=== PATIENT | male | born 1990 | race Caucasian/White ===

== ENCOUNTER → 2016-05-21 | Outpatient (CLI) | payer MEDICAID | LOC: RAD 16:01 | PROVIDERS: ATTEND Nurse Practitioner Family | DX: R07.89 Other chest pain (principal) | CPT/HCPCS: 71020 ==

== ENCOUNTER → 2018-07-27 | Outpatient (CLI) | payer MEDICAID ==
--- NOTE | 2018-07-27 12:20 | RADIOLOGY REPORT (SQ) ---
EXAM DESCRIPTION: FINGERS RIGHT COMPLETED DATE/TIME: 07/27/2018 11:47 am REASON FOR STUDY: PAIN IN RIGHT FINGER(S) M79.644 PAIN IN RIGHT FINGER(S) Crush injury to the right 4th finger 1 month ago COMPARISON: None. NUMBER OF VIEWS: Three views. TECHNIQUE: AP, lateral, and oblique images acquired of the right fourth finger. LIMITATIONS: None. FINDINGS: MINERALIZATION: Normal. BONES: No acute fracture or dislocation. No worrisome bone lesions. SOFT TISSUES: Mild dorsal old right 4th finger soft tissue swelling. No foreign body. OTHER: No other significant finding. IMPRESSION: 4th finger soft tissue swelling without radiopaque foreign body or fracture COMMENT: SITE OF TRAUMA/COMPLAINT MARKED/STAMP COMPLETED: YES. TECHNICAL DOCUMENTATION: JOB ID: [id number] [employer]- All Rights Reserved Reading location - IP/workstation name: [email or web address]
== END ==
LOC: OD 11:28
PROVIDERS: ATTEND Nurse Practitioner Family
DX: M79.644 Pain in right finger(s) (principal); M79.89 Other specified soft tissue disorders

== ENCOUNTER 2019-10-13 18:24 | Emergency (ER) | payer MEDICAID ==
[2019-10-13] MEDS ORDERED: METHOCARBAMOL 500 MG TABLET PO ONE (19:27)
--- NOTE | 2019-10-13 19:30 | ER Document Report ---
HPI - HPI Patient complains to provider of: Shoulder pain Time Seen by Provider: 10/13/19 19:24 Onset: Yesterday Onset/Duration: Sudden, Persistent Quality of pain: Achy, Sharp Severity: Moderate Pain Level: 3 Context: 29-year-old male presented to ED for complaint of pain to the right shoulder. He states he was wearing flip-flops yesterday when he went outside and it was wet and then he came in and slipped on the tile floor claudicates himself with arm causing pain to his right shoulder. He states he is taking Aleve multiple times a day and he took some Flexeril he had from a long time ago and has not had any relief from the pain. He is alert oriented respirations regular and unlabored speaking in full sentences walks with even steady gait. Associated Symptoms: Other - Pain to the right shoulder Exacerbated by: Movement Relieved by: Denies Similar symptoms previously: Yes Recently seen / treated by doctor: No - ROS ROS below otherwise negative: Yes - CONSTITUTIONAL Constitutional: DENIES: Fever, Chills - EENT EENT: DENIES: Sore Throat, Ear Pain, Nasal Drainage-Clear, Nasal Drainage- Purulent, Congestion, Eye problems - NEURO Neurology: DENIES: Headache, Weakness, Vision blurred, Dizzinesss / Vertigo - CARDIOVASCULAR Cardiovascular: DENIES: Chest pain - RESPIRATORY Respiratory: DENIES: Trouble Breathing, Coughing - GASTROINTESTINAL Gastrointestinal: DENIES: Abdominal Pain, Nausea, Patient vomiting, Diarrhea, Constipation, Black / Bloody Stools - URINARY Urinary: DENIES: Dysuria, Urgency, Frequency - MUSCULOSKELETAL Musculoskeletal: REPORTS: Extremity pain. DENIES: Back Pain, Neck Pain, Swelling - DERM Skin Color: Normal Skin Problems: None Past Medical History - General Information source: Patient - Social History Smoking Status: Never Smoker Frequency of alcohol use: None Drug Abuse: None Occupation: Construction Lives with: Family Family History: Reviewed & Not Pertinent Patient has suicidal ideation: No Patient has homicidal ideation: No - Past Medical History Cardiac Medical History: Reports: None Pulmonary Medical History: Reports: None EENT Medical History: Reports: None Neurological Medical History: Reports: None Endocrine Medical History: Reports: None Renal/ Medical History: Reports: None Malignancy Medical History: Reports None GI Medical History: Reports: None Musculoskeletal Medical History: Reports None Skin Medical History: Reports None Psychiatric Medical History: Reports: None Traumatic Medical History: Reports: None Infectious Medical History: Reports: None Surgical Hx: Negative Past Surgical History: Reports: None - Immunizations Hx Diphtheria, Pertussis, Tetanus Vaccination: Yes Vertical Provider Document - CONSTITUTIONAL Agree With Documented VS: Yes Exam Limitations: No Limitations General Appearance: WD/WN, No Apparent Distress - INFECTION CONTROL TRAVEL OUTSIDE OF THE [place] IN LAST 30 DAYS: No - HEENT HEENT: Atraumatic, Normal ENT Exam, Normocephalic, PERRLA - NECK Neck: Normal Inspection, Supple, Thyroid Normal - RESPIRATORY Respiratory: Breath Sounds Normal, No Respiratory Distress, Chest Non-Tender - CARDIOVASCULAR Cardiovascular: Regular Rate, Regular Rhythm - MUSCULOSKELETAL/EXTREMETIES Musculoskeletal/Extremeties: MAEW, FROM - With pain, Tender, No Edema - NEURO Level of Consciousness: Awake, Alert, Appropriate Motor/Sensory: No Motor Deficit, No Sensory Deficit, No Pronator Drift - DERM Integumentary: Warm, Dry, No Rash Course - Re-evaluation Re-evalutation: 10/13/19 19:35 Patient has full range of motion to his left shoulder but he does have pain with range of motion. He fell yesterday caught himself with his arm. He has no bony tenderness. He has been educated on the use of muscle relaxers and shoulder exercises. He is also being given instructions on use of anti-inflammatory medications. He has been instructed that he cannot take Aleve every 4 hours. - Vital Signs Vital signs: Temp Pulse Resp BP Pulse Ox 98.1 F 65 16 131/75 H 99 10/13/19 18:29 10/13/19 18:29 10/13/19 18:29 10/13/19 18:29 10/13/19 18:29 Discharge - Discharge Clinical Impression: Shoulder pain, right Qualifiers: Chronicity: acute Qualified Code(s): M25.511 - Pain in right shoulder Condition: Stable Disposition: HOME, SELF-CARE Additional Instructions: Shoulder Injury You have injured your shoulder. This usually results from stretching or tearing of the tendons during trauma. Time and protection are required in order to heal properly. Many injuries are quite disabling, and should be taken seriously. Initial treatment includes cold packs and a sling to rest the shoulder. The physician has assessed the seriousness of your injury, and has outlined a treatment plan. Understand that this treatment may change, depending on how you progress. If a re-examination was recommended, it is important that you follow up as instructed. Some shoulder injuries (such as partial tear of the rotator cuff) are only suspected after you've failed to improve. Call us if there's severe pain, numbness, or loss of function. Anti-Inflammatory Medication You have received a prescription for an antiinflammatory agent. This is an excellent, safe drug for pain control. In addition, it has potent antiinflammatory effects which are beneficial, especially in the treatment of injuries, arthritis, or tendonitis. It's best to take this medicine with food. Persons with ulcer disease or allergy to aspirin should notify their physician of this before taking this drug. Take the medication exactly as prescribed. Don't take additional doses unless instructed to do so by your doctor. If you develop wheezing, shortness of breath, hives, faintness, stomach pain, vomiting, or dark black stools, return for re-evaluation at once. Ice Packs Apply ice packs frequently against the painful area. Many different schedules are recommended, such as "20 minutes on, 20 minutes off" or "one hour ice, two hours rest." If you need to work, you may need to go longer between ice treatments. You should plan to have the area ice packed AT LEAST one fourth of the time. The ice should be applied over the wrap, tape, or splint, or over a layer of cloth -- not directly against the skin. Some ice bags have a built-in cloth and can be put directly on the skin. Muscle Relaxers Muscle relaxing medications are usually prescribed for acute muscle spasm or injury to the neck and back. They are often combined with antiinflammatory pain medication for increased relief. You may stop the muscle relaxer when the pain and stiffness have improved. Start the medication again if spasms recur. Muscle relaxers may cause drowsiness, especially with the first dose. Do not operate machinery or drive while under the effects of the medication. Most muscle relaxers last up to 24 hours. Do not combine the medication with alcohol. FOLLOW-UP CARE: If you have been referred to a physician for follow-up care, call the physicians office for an appointment as you were instructed or within the next two days. If you experience worsening or a significant change in your symptoms, notify the physician immediately or return to the Emergency Department at any time for re-evaluation. Prescriptions: Methocarbamol [Robaxin 500 mg Tablet] 500 mg PO BIDP PRN #12 tablet PRN Reason: Forms: Elevated Blood Pressure Referrals: AMBER SOLORZANO NP [Primary Care Provider] - Follow up as needed STEPHANIE TRUONG JR, DO [ACTIVE PROVISIONAL STAFF] - Follow up as needed
[2019-10-14 03:59] VITALS: BP 130/84
== END 2019-10-13 19:35 | disposition home or self-care (01) ==
LOC: ER 18:24
DX: M25.511 Pain in right shoulder (principal); W01.0XXA Fall on same level from slipping, tripping and stumbling without subsequent striking against object, initial encounter; Z79.899 Other long term (current) drug therapy
CPT/HCPCS: 99283; J3490

== ENCOUNTER 2020-05-17 10:43 | Emergency (ER) | payer MEDICAID ==
--- NOTE | 2020-05-17 12:03 | ER Document Report ---
ED Medical Screen (RME) - General Chief Complaint: Rib Pain Stated Complaint: LEFT RIB PAIN Time Seen by Provider: 05/17/20 11:58 Primary Care Provider: AMBER SOLORZANO NP [Primary Care Provider] - Follow up as needed Notes: Patient presents complaining of left upper quadrant pain. Patient states occasionally pain will radiate to the epigastric area. Patient denies any nausea vomiting, cough or cold symptoms. Patient denies any urinary symptoms. Patient denies any significant past medical history. I have greeted and performed a rapid initial assessment of this patient. A comprehensive ED assessment and evaluation of the patient, analysis of test results and completion of the medical decision making process will be conducted by additional ED providers. TRAVEL OUTSIDE OF THE [place] IN LAST 30 DAYS: No - Related Data Allergies/Adverse Reactions: No Known Allergies Allergy (Verified 10/13/19 19:27) Past Medical History - Immunizations Hx Diphtheria, Pertussis, Tetanus Vaccination: Yes Physical Exam - Vital signs Vitals: Temp Pulse Resp BP Pulse Ox 98.2 F 85 20 144/84 H 99 05/17/20 11:02 05/17/20 11:02 05/17/20 11:02 05/17/20 11:02 05/17/20 11:02 - Abdominal Tenderness: Tender - Left Upper quadrant Course - Vital Signs Vital signs: Temp Pulse Resp BP Pulse Ox 98.2 F 85 20 144/84 H 99 05/17/20 11:02 05/17/20 11:02 05/17/20 11:02 05/17/20 11:02 05/17/20 11:02 Doctor's Discharge - Discharge Referrals: AMBER SOLORZANO NP [Primary Care Provider] - Follow up as needed
[2020-05-17 12:33] LABS: ALBUMIN 4.4 g/dL (3.5-5.0); ALKALINE PHOSPHATASE 85 U/L (38-126); ANION GAP 8 (5-19); ASPARTATE AMINO TRANSFERASE 49 U/L (17-59); BILIRUBIN,TOTAL 0.6 mg/dL (0.2-1.3); BLOOD UREA NITROGEN 17 mg/dL (7-20); CALCIUM 9.8 mg/dL (8.4-10.2); CARBON DIOXIDE 30 mmol/L (22-30); CHLORIDE 103 mmol/L (98-107); GLUCOSE 78 mg/dL (75-110); POTASSIUM 4.3 mmol/L (3.6-5.0); TOTAL PROTEIN 8.1 g/dL (6.3-8.2)
[2020-05-17 12:38] LABS: ABSOLUTE EOSINOPHILS # (AUTO) 0.1 10^3/uL (0.0-0.6); ABSOLUTE LYMPHOCYTES (AUTO) 2.1 10^3/uL (0.5-4.7); ABSOLUTE MONOCYTES (AUTO) 0.8 10^3/uL (0.1-1.4); ABSOLUTE NEUT (AUTO) 5.6 10^3/uL (1.7-8.2); BASOPHILS % (AUTO) 0.5 % (0-2); EOSINOPHILS % (AUTO) 1.1 % (0-6); HEMATOCRIT 44.1 % (37.9-51.0); HEMOGLOBIN 15.4 g/dL (13.5-17.0); LYMPHOCYTES % (AUTO) 24.7 % (13-45); MEAN CORPUSCULAR HEMOGLOBIN 30.2 pg (27.0-33.4); MEAN CORPUSCULAR HGB CONC 34.9 g/dL (32.0-36.0); MEAN CORPUSCULAR VOLUME 87 fl (80-97); MONOCYTES % (AUTO) 9.1 % (3-13); PLATELET COUNT 298 10^3/uL (150-450); RED CELL DISTRIBUTION WIDTH 12.3 % (11.5-14.0); SEGMENTED NEUTROPHILS % (AUTO) 64.6 % (42-78); TOTAL CELLS COUNTED % (AUTO) 100 %; WHITE BLOOD COUNT 8.6 10^3/uL (4.0-10.5)
--- NOTE | 2020-05-17 12:51 | RADIOLOGY REPORT (SQ) ---
EXAM DESCRIPTION: ACUTE ABDOMEN SERIES IMAGES COMPLETED DATE/TIME: 05/17/2020 12:27 pm REASON FOR STUDY: LUQ pain COMPARISON: None. NUMBER OF VIEWS: Three views. TECHNIQUE: Frontal chest, supine abdomen and upright/decubitus abdomen radiographic images acquired. LIMITATIONS: None. FINDINGS: CHEST: Lungs clear of infiltrates. FREE AIR: None. No abnormal gas collections. BOWEL GAS PATTERN: Nonobstructive pattern. No dilated loops or air fluid levels. CALCIFICATIONS: No suspicious calcifications. HARDWARE: None in the abdomen. SOFT TISSUES: No gross mass or suggestion of organomegaly. BONES: No acute fracture. No worrisome bone lesions. OTHER: No other significant finding. IMPRESSION: 1. No acute pulmonary consolidation. 2. NO RADIOGRAPHIC EVIDENCE FOR ACUTE ABDOMINAL DISEASE. TECHNICAL DOCUMENTATION: JOB ID: [id number] [email or web address] All Rights Reserved Reading location - IP/workstation name: [email or web address]
--- NOTE | 2020-05-17 15:39 | EKG REPORT ---
SEVERITY:- NORMAL ECG - SINUS RHYTHM : Confirmed by: Richar Nogueira MD 17-May-2020 15:37:59
[2020-05-17 16:58] LABS: APPEARANCE,URINE CLEAR; BILIRUBIN,URINE NEGATIVE (NEGATIVE); COLOR,URINE YELLOW; GLUCOSE, URINE NEGATIVE (NEGATIVE); KETONES,URINE NEGATIVE (NEGATIVE); LEUKOCYTE ESTERASE,URINE NEGATIVE (NEGATIVE); NITRITE,URINE NEGATIVE (NEGATIVE); PROTEIN,URINE NEGATIVE (NEGATIVE); URINE SPECIFIC GRAVITY 1.026; UROBILINOGEN,URINE NEGATIVE mg/dL (<2.0)
[2020-05-17] MEDS ORDERED: KETOROLAC TROMETHAMINE 60 MG/2 ML SDV IM ONE (17:15)
[2020-05-17] MEDS ORDERED: OXYCODONE-ACETAMINOPHEN 5-325 MG TABLET PO ONE (17:15)
[2020-05-17] MEDS ORDERED: CYCLOBENZAPRINE HCL 10 MG TABLET PO ONE (17:15)
--- NOTE | 2020-05-17 17:19 | ER Document Report ---
ED General - General Chief Complaint: Chest Wall Pain Stated Complaint: LEFT RIB PAIN Time Seen by Provider: 05/17/20 11:58 Primary Care Provider: AMBER SOLORZANO NP [Primary Care Provider] - Follow up as needed TRAVEL OUTSIDE OF THE [place] IN LAST 30 DAYS: No - HPI Notes: Patient is a 29-year-old male who presents emergency department for evaluation of pain is his left upper abdomen/chest wall. It started last night while he was at work. He took some Percocet and this seemed to help his pain temporarily. The pain is exacerbated by movements and taking very deep breaths. He denies any associated shortness of breath. He has no history of DVT or PE. No family history of DVT or PE. He has had no prolonged immobilization, no recent surgeries, no personal history of cancer, no exogenous hormone administration. He has had no fevers or chills, no nausea or vomiting. Normal bowel movements. He is eating and drinking normally. No urinary symptoms. - Related Data Allergies/Adverse Reactions: No Known Allergies Allergy (Verified 10/13/19 19:27) Home Medications: None Past Medical History - General Information source: Patient - Social History Smoking Status: Never Smoker Chew tobacco use (# tins/day): No Frequency of alcohol use: None Drug Abuse: None Family History: Reviewed & Not Pertinent - Past Medical History Cardiac Medical History: Denies: Hx Coronary Artery Disease, Hx DVT, Hx Pulmonary Embolism Pulmonary Medical History: Denies: Hx Asthma, Hx COPD Neurological Medical History: Denies: Hx Cerebrovascular Accident, Hx Seizures Endocrine Medical History: Denies: Hx Diabetes Mellitus Type 1, Hx Diabetes Mellitus Type 2 Renal/ Medical History: Denies: Hx End Stage Renal Disease Malignancy Medical History: Reports None - Immunizations Hx Diphtheria, Pertussis, Tetanus Vaccination: Yes Review of Systems - Review of Systems Constitutional: No symptoms reported EENT: No symptoms reported Cardiovascular: No symptoms reported Respiratory: See HPI Gastrointestinal: No symptoms reported Genitourinary: No symptoms reported Musculoskeletal: See HPI Skin: No symptoms reported Neurological/Psychological: No symptoms reported Physical Exam - Vital signs Vitals: Temp Pulse Resp BP Pulse Ox 98.2 F 85 20 144/84 H 99 05/17/20 11:02 05/17/20 11:02 05/17/20 11:02 05/17/20 11:02 05/17/20 11:02 - Notes Notes: Vital signs reviewed, please refer to chart. Head is normocephalic, atraumatic. Pupils equal round, reactive to light. Neck is supple without meningismus. Heart is regular rate and rhythm. Lungs are clear to auscultation bilaterally. No obvious abnormality to chest wall. Patient is in clear amount of discomfort with palpation to the upper abdomen and the chest wall as well. No overlying skin changes. Chest wall excursion is equal bilaterally. Abdomen is soft, nontender, normoactive bowel sounds throughout. Extremities without cyanosis, clubbing. Posterior calves are nontender. Peripheral pulses are equal. Skin is warm and dry. Patient is awake, alert, neurological exam is nonfocal. Course - Re-evaluation Re-evalutation: 05/17/20 17:18 Patient presents emergency department for evaluation. This is a 29-year-old male with no medical history who presents with pain that is exacerbated by movement and palpation. He has no risk factors for DVT or PE. I believe this is musculoskeletal. He was treated here with Toradol, Flexeril, Percocet. I will send him home with prescription for Naprosyn and Flexeril. He is to follow-up closely with primary care, return to the ED with worsening or new concerning symptoms of any sort. - Vital Signs Vital signs: Temp Pulse Resp BP Pulse Ox 98.2 F 85 20 144/84 H 99 05/17/20 11:02 05/17/20 11:02 05/17/20 11:02 05/17/20 11:02 05/17/20 11:02 - Laboratory Results Result Diagrams: 05/17/20 12:05 05/17/20 12:05 Laboratory Results Interpreted: 05/17/20 12:05 ALT 90 H Critical Laboratory Results Reviewed: No Critical Results - Radiology Results Radiology Results Interpreted: 05/17/20 17:18 Acute Abdomen Series 05/17/20 12:02 IMPRESSION: 1. No acute pulmonary consolidation. 2. NO RADIOGRAPHIC EVIDENCE FOR ACUTE ABDOMINAL DISEASE. Critical Radiology Results Reviewed: No Critical Results - EKG Interpretation by Me Additional EKG results interpreted by me: 05/17/20 17:19 Sinus mechanism with a rate of 69 bpm. Normal axis and intervals. No acute ST changes concerning for ischemia or infarction. Discharge - Discharge Clinical Impression: Chest wall pain, Abdominal wall pain Condition: Stable Disposition: HOME, SELF-CARE Instructions: Abdominal Pain ([facility]), Chest Wall Pain ([facility]), Anti-Inflammatory Medication ([facility]) Additional Instructions: Your findings seem most consistent with musculoskeletal pain. Please take medications as prescribed, preferably with food. Please watch for drowsiness with Flexeril. Follow-up with your primary care provider next week. Return to the emergency department with worsening or new concerning symptoms of any sort. Referrals: AMBER SOLORZANO NP [Primary Care Provider] - Follow up as needed
[2020-05-17 17:36] VITALS: BP 126/70
== END 2020-05-17 17:36 | disposition home or self-care (01) ==
LOC: ER 10:43
DX: R07.89 Other chest pain (principal); R10.12 Left upper quadrant pain
CPT/HCPCS: 93005; 99285; 96372; 36415; 83690; 85025; 80053; 81001; 74022; 93010; J3490; J1885